=== PATIENT | male | born 1975 | race Caucasian/White ===

== ENCOUNTER → 2021-01-09 12:58 | Outpatient (CLI) | payer BC, SELFPAY ==
--- NOTE | 2021-01-09 13:01 | XR_ITS ---
PROCEDURE: XR CHEST PORTABLE CLINICAL HISTORY: COVID TESTING COMPARISON: No exams were available for comparison FINDINGS: The cardiomediastinal silhouette and pulmonary vascularity are within normal limits. The lungs are well expanded. There are questionably increased bronchovascular markings in the right infrahilar region and though the findings are subtle developing minimal infiltrate cannot be entirely excluded though most likely this simply is a confluence of vascular shadows. There is no pleural fluid. IMPRESSION: Probably normal just but see discussion above Dictated by: Dr. Yves Ramsey MD 01/09/2021 13:22 Dr. Yves Ramsey MD in [facility] 01/09/2021 13:22
[2021-01-09 13:58] LABS: Basophils % 0.8 % (0.1-2.0); Eosinophils # 0.1 K/mm3 (0.0-0.4); Eosinophils % 1.7 % (0.1-12.0); Hematocrit 46.2 % (42.0-52.0); Hemoglobin 15.3 g/dL (14.1-18.0); Lymphocytes % 21.1 % (10-50); Mean Corpuscular HGB Conc 33.1 g/dL (31.8-35.4); Mean Corpuscular Hemoglobin 28.5 pg (27.0-31.2); Mean Corpuscular Volume 86.3 fl (80-94); Mean Platelet Volume 8.7 fl (7.4-10.4); Monocytes # 0.5 K/mm3 (0.1-1.0); Monocytes % 10.2 % (1.7-9.3); Neutrophils # 3.2 K/mm3 (1.8-7.8); Neutrophils % 66.2 % (37.0-80.0); Platelet Count 168 K/mm3 (142-424); Red Blood Count 5.36 M/mm3 (4.60-6.20); Red Cell Distribution Width 13.7 % (11.5-17.5); White Blood Count 4.8 K/mm3 (4.8-10.8)
== END ==
PROVIDERS: PCP Family Medicine; Visit Provider Family Medicine
DX: Z20.822 Contact with and (suspected) exposure to COVID-19 (principal)
CPT/HCPCS: 36415; 71045; 85025